=== PATIENT | female | born 1955 | race Hispanic/Latino ===

== ENCOUNTER 2017-05-25 19:09 | Emergency (ER) | payer SELFPAY ==
[~2017-05-25] VITALS: Ht 152.4 cm; Wt 80.7 kg
[2017-05-25] MEDS ORDERED: ACETAMINOPHEN 325 MG TAB PO ONE (19:45)
[2017-05-25] MEDS ORDERED: DIATRIZOATE MEGL/DIATRIZOA SOD 30 ML BTL PO ONE (20:02)
[2017-05-25 20:54] LABS: BILIRUBIN,URINE 1+ (NEGATIVE); KETONES,URINE TRACE (NEGATIVE); LEUKOCYTE ESTERASE ,URINE NEGATIVE (NEGATIVE); NITRITE,URINE NEGATIVE (NEGATIVE); PROTEIN,URINE DIPSTICK NEGATIVE (NEGATIVE); URINE UROBILINOGEN 0.2 mg/dL (0.2 - 1)
[2017-05-25 20:57] LABS: BASOPHILS # (AUTO) 0.1 (0.0-0.1); BASOPHILS % 0.8 % (0.0-1.0); EOSINOPHILS % 0.1 % (0.0-6.0); HEMATOCRIT 36.8 % (34.2-44.1); LYMPHOCYTES # (AUTO) 2.7 (1.0-3.2); LYMPHOCYTES % 16.1 % (18.0-39.1); MEAN CORPUSCULAR HEMOGLOBIN 27.8 pg (28-32); MEAN CORPUSCULAR HGB CONC 35.3 g/dL (31-35); MEAN CORPUSCULAR VOLUME 78.6 fL (81-99); MONOCYTES # (AUTO) 1.4 (0.2-0.8); MONOCYTES % 8.5 % (4.4-11.3); NEUTROPHILS % 72.9 % (38.7-80.0); PLATELET COUNT 214 x10e3/uL (140-360); RED BLOOD COUNT 4.68 x10e6/uL (3.6-5.1); RED CELL DISTRIBUTION WIDTH 13.3 % (11.7-14.4)
--- NOTE | 2017-05-25 20:58 | Diagnostic Imaging Report ---
Portable chest x-ray CPT code 35819 INDICATION: Fever COMPARISON: None FINDINGS: Frontal view of the chest obtained at 2017 hours. The cardiac silhouette is normal. The pulmonary vascular marking are normal. The lungs demonstrate linear airspace opacity left midlung field. The left diaphragm is poorly visualized. Right lung is clear. The costophrenic angles are sharp. There is no pneumothorax. The osseous structures are intact and normal in morphology. IMPRESSION: Left basilar airspace disease suggestive atelectasis and/or infiltrate. Small effusion cannot be excluded. Signed by: Dr. Gary Lackey MD on 05/25/2017 8:54 PM
[2017-05-25 21:03] LABS: CLARITY,URINE SL CLOUDY (CLEAR); COLOR,URINE YELLOW (YELLOW)
[2017-05-25 21:11] LABS: EPITHELIAL CELLS,URINE RARE /LPF; RBC,URINE 0-5 /HPF (0-5)
[2017-05-25 21:14] LABS: ALANINE AMINOTRANSFERASE 39 IU/L (0-55); ALBUMIN 2.2 g/dL (3.5-5.0); ALBUMIN/GLOBULIN RATIO 0.4 (0.8-2.0); ALKALINE PHOSPHATASE 161 IU/L (40-150); ANION GAP 15.7 mmol/L (8-16); BLOOD UREA NITROGEN 12 mg/dL (7-26); BUN/CREATININE RATIO 13 (6-25); CALCIUM 8.6 mg/dL (8.4-10.2); CARBON DIOXIDE 22 mmol/L (22-29); CHLORIDE 97 mmol/L (98-107); EST GLOMERULAR FILTRATION RATE > 60 ML/MIN (60-); POTASSIUM 4.7 mmol/L (3.5-5.1); SODIUM 130 mmol/L (136-145)
[2017-05-25 21:16] LABS: GLUCOSE 410 mg/dL (74-118)
--- NOTE | 2017-05-25 22:01 | Diagnostic Imaging Report ---
ADDENDUM #1 EXAM: CT Abdomen and Pelvis WITH contrast INDICATION: Abdominal pain, fever COMPARISON: Chest x-ray on 05/25/2017 TECHNIQUE: Abdomen and pelvis were scanned utilizing a multidetector helical scanner from the lung base to the pubic symphysis after administration of IV contrast. Coronal and sagittal reformations were obtained. Routine protocol was performed. Scan was performed when during portal venous phase. IV CONTRAST: 100 mL of Isovue-370 ORAL CONTRAST: None RADIATION DOSE: Total DLP: 734.71 mGy*cm Estimated effective dose: (DLP x 0.015 x size factor) mSv COMPLICATIONS: None FINDINGS: LINES and TUBES: None. LOWER THORAX: Unremarkable HEPATOBILIARY: No focal hepatic lesions. No biliary ductal dilation. GALLBLADDER: No radio-opaque stones or sludge. No wall thickening. SPLEEN: No splenomegaly. PANCREAS: No focal masses or ductal dilatation. ADRENALS: No adrenal nodules KIDNEYS/URETERS: Focal area of hypodensity noted in the anterior upper pole of the left kidney associated with a large air and fluid containing collection measuring 3.3 x 6.7 x 6.5 cm best seen on series 2, image 29 and coronal image 76 . No evidence of hydronephrosis No cystic or solid mass lesions. No stones. Simple cyst in the posterior interpolar region of the left kidney measuring 2 cm in diameter GI TRACT: No abnormal distention, wall thickening, or evidence of bowel obstruction. There are diverticula within the colon without evidence of diverticulitis. Appendix is normal. PELVIC ORGANS/BLADDER: Unremarkable. LYMPH NODES: No lymphadenopathy. VESSELS: There is mild atherosclerotic disease in the aorta and major arterial branches. PERITONEUM / RETROPERITONEUM: Extensive left perirenal and lower left retroperitoneal edema BONES: Unremarkable. SOFT TISSUES: Unremarkable. IMPRESSION: 1. Findings are compatible with complicated pyelonephritis involving the upper pole of the left kidney with large air and fluid containing collection within the retroperitoneum. 2. The left perirenal abscess measures 3.3 x 6.7 x 6.5 cm. Signed by: Dr. Gino Mariano M.D. on 05/25/2017 10:49 PM ORIGINAL REPORT EXAM: CT Abdomen and Pelvis WITH contrast INDICATION: Abdominal pain, fever COMPARISON: Chest x-ray on 05/25/2017 TECHNIQUE: Abdomen and pelvis were scanned utilizing a multidetector helical scanner from the lung base to the pubic symphysis after administration of IV contrast. Coronal and sagittal reformations were obtained. Routine protocol was performed. Scan was performed when during portal venous phase. IV CONTRAST: 100 mL of Isovue-370 ORAL CONTRAST: None RADIATION DOSE: Total DLP: 734.71 mGy*cm Estimated effective dose: (DLP x 0.015 x size factor) mSv COMPLICATIONS: None FINDINGS: LINES and TUBES: None. LOWER THORAX: Unremarkable HEPATOBILIARY: No focal hepatic lesions. No biliary ductal dilation. GALLBLADDER: No radio-opaque stones or sludge. No wall thickening. SPLEEN: No splenomegaly. PANCREAS: No focal masses or ductal dilatation. ADRENALS: No adrenal nodules KIDNEYS/URETERS: Focal area of hypodensity noted in the anterior upper pole of the left kidney associated with a large air and fluid containing collection measuring 3.3 x 6.7 x 45 cm best seen on series 2, image 29 and coronal image 76 . No evidence of hydronephrosis No stones. Simple cyst in the posterior interpolar region of the left kidney measuring 2 cm in diameter GI TRACT: No abnormal distention, wall thickening, or evidence of bowel obstruction. There are diverticula within the colon without evidence of diverticulitis. Appendix is normal. PELVIC ORGANS/BLADDER: Unremarkable. LYMPH NODES: No lymphadenopathy. VESSELS: There is mild atherosclerotic disease in the aorta and major arterial branches. PERITONEUM / RETROPERITONEUM: Extensive left perirenal and lower left retroperitoneal edema BONES: Unremarkable. SOFT TISSUES: Unremarkable. IMPRESSION: 1. Findings are compatible with complicated pyelonephritis involving the upper pole of the left kidney with large air and fluid containing collection within the retroperitoneum. Signed by: Dr. Gino Mariano M.D. on 05/25/2017 9:57 PM
[2017-05-25] MEDS ORDERED: PIPER-TAZ 3.375 GM 50 ML IV STA (22:09)
[2017-05-25] MEDS ORDERED: SODIUM CHLORIDE 0.9% 1000ML 1,000 ML IV ONE (22:15)
[2017-05-25] MEDS ORDERED: INSULIN REGULAR, HUMAN 100 UNIT/1 ML 3ML VIAL SQ ONE (22:15)
[2017-05-25] MEDS ORDERED: SULFAMETHOXAZO1 EAC1 PO (22:24)
[2017-05-25] MEDS ORDERED: GLIPIZIDE5 MG PO (22:24)
[2017-05-25] MEDS ORDERED: LOSARTAN POTASS25 MG PO (22:25)
[2017-05-25] MEDS ORDERED: IOPAMIDOL 370 MG/ML 200 ML INFUS..BTL INJ ONE (22:25)
[2017-05-25] MEDS ORDERED: AMLODIPINE BESYL5 MG PO (22:25)
[2017-05-25] MEDS ORDERED: LOVASTATIN20 MG PO (22:25)
[2017-05-25] MEDS ORDERED: SODIUM CHLORIDE 0.9% 50ML 50 ML ONE (22:25)
[2017-05-25] MEDS ORDERED: POTASSIUM CHLO10 ME1 PO (22:26)
== END 2017-05-26 00:37 | disposition short-term general hospital (02) ==
LOC: ER 19:09
DX: R50.9 Fever, unspecified (principal); R10.32 Left lower quadrant pain; R11.2 Nausea with vomiting, unspecified; N10 Acute pyelonephritis; N15.1 Renal and perinephric abscess; I10 Essential (primary) hypertension; E11.9 Type 2 diabetes mellitus without complications
CPT/HCPCS: 36415; 71010; 74177; 80053; 81001; 82948; 83605; 85025; 87086; 96360; 96365; 96372; 99284; J2543; J7030; Q9967

== ENCOUNTER 2022-11-21 17:02 | Emergency (ER) | payer SELFPAY ==
[~2022-11-21] VITALS: Ht 152.4 cm; Wt 77.1 kg
[~2022-11-21 17:02] MED LIST: AMLODIPINE BESYL5 MG PO; GLIPIZIDE5 MG PO; LOSARTAN POTASS25 MG PO; LOVASTATIN20 MG PO; POTASSIUM CHLO10 ME1 PO; SULFAMETHOXAZO1 EAC1 PO
[2022-11-21 17:10] VITALS: O2SAT 95
[2022-11-21] MEDS ORDERED: MUCINEX DM ER1 EAC1 PO (18:13)
[2022-11-21] MEDS ORDERED: FLONASE ALLERG9.9 ML INH (18:13)
[2022-11-21] MEDS ORDERED: CLARITIN10 MG PO (18:13)
[2022-11-21] MEDS ORDERED: VIGAMOX3 ML OU (18:13)
[2022-11-21] MEDS ORDERED: BENZONATATE100 MG PO (18:13)
== END 2022-11-21 18:21 | disposition home or self-care (01) ==
LOC: FSED 17:08
DX: J06.9 Acute upper respiratory infection, unspecified (principal); H10.9 Unspecified conjunctivitis; R05.9 Cough, unspecified; R09.3 Abnormal sputum; R09.81 Nasal congestion; I10 Essential (primary) hypertension; E78.5 Hyperlipidemia, unspecified; E11.9 Type 2 diabetes mellitus without complications; Z79.84 Long term (current) use of oral hypoglycemic drugs; Z79.899 Other long term (current) drug therapy
CPT/HCPCS: 83518; 87400; 99282